=== PATIENT | female | born 1975 | race Caucasian/White ===

== ENCOUNTER 2016-07-15 11:23 | Emergency (ER) | payer MEDICAID, OTHER ==
[~2016-07-15] VITALS: Ht 162.6 cm; Wt 120.2 kg
[~2016-07-15 11:23] MED LIST: AZITHROMYCIN250 MG PO; CIPROFLOXACIN500 M2 ORAL; IBUPROFEN600 MG ORAL; IBUPROFEN600 MG PO; KEFLEX500 MG ORAL; NKM; NO MEDS; NORCO 5-325 TA1 EACH PO; TYLENOL325 MG ORAL
--- NOTE | 2016-07-15 13:16 | Emergency Room Report ---
History of Present Illness General Chief Complaint: Multiple Trauma/Fall Source: Patient Present Illness HPI 40-year-old female presents emergency department complaining of 5/10 in severity left knee pain since this morning. Patient states she took Vicodin prior to arrival as her pain initially was 10 out of 10 in severity. Patient states that she was walking when her left knee buckled from underneath her and she fell to the ground. Patient states she did not hit her head she did not lose consciousness. Patient states she her knee cap dislocated laterally and repositioned itself. Patient denies color changes to the extremity denies numbness or tingling in the affected extremity. Patient reports pain primarily to the medial aspect of the left anterior knee. Patient reports feeling as though her knee is went to give out on her again. Patient reports history of similar episode in the right knee that was years ago. Denies numbness tingling or loss of sensation or gross motor movements of the extremities, incontinence of bowel or bladder. Denies CP, Palpitations, LOC, AMS, dizziness, Changes in Vision, Sensation, paresthesias, or a sudden severe headache. Allergies: Coded Allergies: ASPIRIN (Verified Allergy, Mild, JAUNDICED, 01/18/12) SULFA(SULFONAMIDE ANTIBIOTICS) (Verified Allergy, Mild, Itching, 01/18/12) Patient History Past Medical History: see triage record Past Surgical History: none Pertinent Family History: none Now: No Immunizations: UTD Reviewed Nursing Documentation: PMH: Agreed, PSxH: Agreed Nursing Documentation-PMH Past Medical History: No History, Except For Review of Systems All Other Systems: negative except mentioned in HPI Physical Exam Vital Signs Date Time Temp Pulse Resp B/P Pulse Ox O2 Delivery O2 Flow Rate FiO2 07/15/16 12:02 98.1 78 16 130/80 98 Room Air Sp02 EP Interpretation: reviewed, normal General Appearance: no apparent distress, alert, GCS 15, non-toxic Head: normocephalic, atraumatic Eyes: bilateral eye PERRL, bilateral eye normal inspection ENT: hearing grossly normal, normal pharynx, no angioedema, normal voice Neck: full range of motion, supple/symm/no masses Respiratory: lungs clear, normal breath sounds, speaking full sentences Cardiovascular #1: regular rate, rhythm, no edema, normal capillary refill, other - no evidence of circulatory compromise to the left leg/foot. good capilarry refill, and pedal pulses are equal bilaterally. Musculoskeletal: back normal, gait/station normal, normal range of motion, other - no evidence of circulatory compromise to the left leg/foot. good capilarry refill, and pedal pulses are equal bilaterally. , tender - TTP to the medial left knee, no increased laxity upon varus or valgus stressing, negative anterior and posterior drawer signs. Neurologic: alert, oriented x3, responsive, motor strength/tone normal, sensory intact, speech normal Psychiatric: judgement/insight normal, memory normal, mood/affect normal, no suicidal/homicidal ideation Skin: normal color, no rash, warm/dry, well hydrated Medical Decision Making PA Attestation Dr. Fry is my supervising Physician whom patient management has been discussed with. Diagnostic Impression: Primary Impression: Knee sprain Qualified Codes: S83.92XA - Sprain of unspecified site of left knee, initial encounter ER Course Pt. presents to the ED c/o Left knee pain after knee "gave out on her" Ddx considered but are not limited to Fracture, dislocation, contusion, Sprain/ Strain/Spasm, Vital signs: are WNL, pt. is afebrile H&PE are most consistent with Left knee sprain will r/o fracture., no evidence of circulatory compromise to the knee, no appreciable increased laxity noted. ORDERS: - X-ray Left knee 3 views - negative for fx, Dislocation, or significant soft tissue injury, per preliminary read in ED by Dr. Fry ED INTERVENTIONS: - Knee immobilizer Splint applied to the left knee by pathology tech. Pt. remains neurovascularly intact. -Pt is provided with crutches. Pt. is stable for close outpatient follow up. DISCHARGE: At this time pt. is stable for d/c to home. Will provide printed patient care instructions, and any necessary prescriptions. Care plan and follow up instructions have been discussed with the patient prior to discharge. Last Vital Signs Date Time Temp Pulse Resp B/P Pulse Ox O2 Delivery O2 Flow Rate FiO2 07/15/16 12:02 98.1 78 16 130/80 98 Room Air Disposition: HOME, SELF-CARE Condition: Stable Scripts Acetaminophen* (TYLENOL EXTRA STRENGTH*) 500 Mg Tablet 500 MG ORAL Q6H, #30 TAB 0 Refills Prov: Tiki Day 07/15/16 Referrals: NON PHYSICIAN (PCP) Patient Instructions: Combined Knee Ligament Sprain, Knee Sprain Additional Instructions: Take medications as directed. Follow up with PCP in 3-5 days Return sooner to ED if new symptoms occur, or current symptoms become worse. - Please note that this Emergency Department Report was dictated using [employer] events driver technology software, occasionally this can lead to erroneous entry secondary to interpretation by the dictation equipment. Tiki Day Jul 15, 2016 13:16
[2016-07-15] MEDS ORDERED: TYLENOL EXTRA500 MG ORAL (13:18)
--- NOTE | 2016-07-15 13:25 | Diagnostic Imaging Report ---
Indications: PAIN Technique: Three views of the left knee Comparison: None Findings: No acute fractures. No dislocations. Joint spaces are preserved. No radiopaque foreign body. Normal mineralization. Impression: No acute process
[2016-07-15 13:50] VITALS: BP 125/85
== END 2016-07-15 13:50 | disposition home or self-care (01) ==
LOC: EMR 12:48
DX: S83.92XA Sprain of unspecified site of left knee, initial encounter (principal); W19.XXXA Unspecified fall, initial encounter; Y92.89 Other specified places as the place of occurrence of the external cause; Z88.6 Allergy status to analgesic agent; Z88.2 Allergy status to sulfonamides
CPT/HCPCS: 29530; 99283

== ENCOUNTER 2016-11-07 18:01 | Emergency (ER) | payer MEDICAID ==
[~2016-11-07] VITALS: Ht 162.6 cm; Wt 115.7 kg
[~2016-11-07 18:01] MED LIST changes: +TYLENOL EXTRA500 MG ORAL
[2016-11-07 19:07] LABS: BASOPHILS % (AUTO) 0.8 % (0.0-2.0); EOSINOPHILS % (AUTO) 2.1 % (0.0-3.0); LYMPHOCYTES % (AUTO) 24.6 % (20.0-45.0); MEAN CORPUSCULAR HEMOGLOBIN 29.3 PG (27.0-31.0); MEAN CORPUSCULAR HGB CONC 33.8 G/DL (32.0-36.0); MEAN CORPUSCULAR VOLUME 87 FL (80-99); MEAN PLATELET VOLUME 7.9 FL (6.5-10.1); MONOCYTES % (AUTO) 5.6 % (1.0-10.0); NEUTROPHILS % (AUTO) 66.9 % (45.0-75.0); PLATELET COUNT 284 K/UL (150-450); RED BLOOD COUNT 4.57 M/UL (4.20-5.40); RED CELL DISTRIBUTION WIDTH 12.3 % (11.6-14.8); WHITE BLOOD COUNT 14.3 K/UL (4.8-10.8)
[2016-11-07 19:12] LABS: APPEARANCE,URINE CLEAR; KETONES,URINE NEGATIVE (NEGATIVE); LEUKOCYTE ESTERASE ,URINE NEGATIVE (NEGATIVE); NITRITE,URINE NEGATIVE (NEGATIVE); PH,URINE 7 (4.5-8.0); PROTEIN,URINE NEGATIVE (NEGATIVE); UROBILINOGEN,URINE NORMAL MG/DL (0.0-1.0)
[2016-11-07 19:15] VITALS: BP 109/76
[2016-11-07 19:29] LABS: ALANINE AMINOTRANSFERASE 29 U/L (3-33); ANION GAP 12 (5-15); ASPARTATE AMINO TRANSFERASE 24 U/L (5-40); CALCIUM 9.6 mg/dL (8.6-10.2); CARBON DIOXIDE 27 mEQ/L (20-30); CHLORIDE 99 mEQ/L (98-107); CREATININE 0.8 mg/dL (0.5-0.9); GLOMERULAR FILTRATION RATE > 60 mL/min (>60); HEMOLYSIS 9; LIPASE 31 U/L (< 60); POTASSIUM 3.9 mEQ/L (3.4-4.9); SODIUM 138 mEQ/L (135-145); TOTAL PROTEIN 7.5 g/dL (6.6-8.7)
[2016-11-07] MEDS ORDERED: TYLENOL EXTRA500 MG ORAL (20:28)
[2016-11-07] MEDS ORDERED: Norco 5mg/325mg tab ORAL ONE (20:30)
[2016-11-07 20:55] VITALS: BP 119/70
--- NOTE | 2016-11-07 22:04 | Emergency Room Report ---
History of Present Illness General Chief Complaint: Abdominal Pain Source: Patient Present Illness [facility] The patient is a 40-year-old female presenting for mid abdominal pain. This began today for an unknown reason. Last normal menstrual period was 2 weeks prior. Pain is an 8/10 dull ache to the midabdomen and does not radiate. Worse with touch. She denies other symptoms including nausea, vomiting, fever, chills, constipation, diarrhea, vaginal bleeding, vaginal discharge, dysuria, hematuria, back pain Allergies: Coded Allergies: ASPIRIN (Verified Allergy, Mild, JAUNDICED, 01/18/12) SULFA(SULFONAMIDE ANTIBIOTICS) (Verified Allergy, Mild, Itching, 01/18/12) Patient History Past Medical History: see triage record Pertinent Family History: none Reviewed Nursing Documentation: PMH: Agreed, PSxH: Agreed Review of Systems All Other Systems: negative except mentioned in HPI Physical Exam Vital Signs Date Time Temp Pulse Resp B/P Pulse Ox O2 Delivery O2 Flow Rate FiO2 11/07/16 18:08 98.1 103 20 109/76 98 Room Air Sp02 EP Interpretation: reviewed, normal General Appearance: no apparent distress, alert, GCS 15, non-toxic Head: normocephalic, atraumatic Eyes: bilateral eye PERRL, bilateral eye normal inspection ENT: hearing grossly normal, normal pharynx, no angioedema, normal voice Neck: full range of motion, supple/symm/no masses Cardiovascular #1: regular rate, rhythm, no edema Gastrointestinal: normal bowel sounds, soft, no mass, no guarding, no rebound, tenderness - periumbilical , overweight Rectal: deferred Genitourinary: normal inspection, no CVA tenderness Musculoskeletal: back normal, gait/station normal, normal range of motion, non- tender Neurologic: alert, oriented x3, responsive, motor strength/tone normal, sensory intact, speech normal Psychiatric: judgement/insight normal, memory normal, mood/affect normal, no suicidal/homicidal ideation Reflexes: 3+ bicep (R), 3+ bicep (L), 3+ tricep (R), 3+ tricep (L), 3+ knee (R) , 3+ knee (L) Skin: normal color, no rash, warm/dry, well hydrated Medical Decision Making PA Attestation Dr. Maynard is my supervising physician. Patient management was discussed with my supervising physician Diagnostic Impression: Primary Impression: Ovarian cyst Qualified Codes: N83.209 - Unspecified ovarian cyst, unspecified side Additional Impression: Umbilical hernia Qualified Codes: K42.9 - Umbilical hernia without obstruction or gangrene ER Course The patient is a 40-year-old female presenting for mid abdominal pain. Differential diagnoses considered include but not limited to gastritis, pancreatitis, appendicitis, , UTI, among others PE: afebrile. NAD Abdomen is soft. There is tenderness periumbilical tenderness to palpation. Normal bowel sounds. No masses. Nondistended. No CVA tenderness Blood work shows leukocytosis. Otherwise unremarkable. CT scan of abdomen/pelvis shows nonincarcerated umbilical hernia and ovarian cysts. Otherwise unremarkable The patient is given IV fluids and pain medication and feels better. She will be discharged home. She was informed of results. ER precautions are given Laboratory Tests Test 11/07/16 18:10 11/07/16 18:40 Urine Color Pale yellow Urine Appearance Clear Urine pH 7 (4.5-8.0) Urine Specific [place] 1.010 (1.005-1.035) Urine Protein Negative (NEGATIVE) Urine Glucose (UA) Negative (NEGATIVE) Urine Ketones Negative (NEGATIVE) Urine Occult Blood Negative (NEGATIVE) Urine Nitrite Negative (NEGATIVE) Urine Bilirubin Negative (NEGATIVE) Urine Urobilinogen Normal MG/DL (0.0-1.0) Urine Leukocyte Esterase Negative (NEGATIVE) Urine HCG, Qualitative Negative White Blood Count 14.3 K/UL (4.8-10.8) H Red Blood Count 4.57 M/UL (4.20-5.40) Hemoglobin 13.4 G/DL (12.0-16.0) Hematocrit 39.6 % (37.0-47.0) Mean Corpuscular Volume 87 FL (80-99) Mean Corpuscular Hemoglobin 29.3 PG (27.0-31.0) Mean Corpuscular Hemoglobin Concent 33.8 G/DL (32.0-36.0) Red Cell Distribution Width 12.3 % (11.6-14.8) Platelet Count 284 K/UL (150-450) Mean Platelet Volume 7.9 FL (6.5-10.1) Neutrophils (%) (Auto) 66.9 % (45.0-75.0) Lymphocytes (%) (Auto) 24.6 % (20.0-45.0) Monocytes (%) (Auto) 5.6 % (1.0-10.0) Eosinophils (%) (Auto) 2.1 % (0.0-3.0) Basophils (%) (Auto) 0.8 % (0.0-2.0) Sodium Level 138 mEQ/L (135-145) Potassium Level 3.9 mEQ/L (3.4-4.9) Chloride Level 99 mEQ/L (98-107) Carbon Dioxide Level 27 mEQ/L (20-30) Anion Gap 12 (5-15) Blood Urea Nitrogen 10 mg/dL (7-23) Creatinine 0.8 mg/dL (0.5-0.9) Estimate Glomerular Filtration Rate > 60 mL/min (>60) Glucose Level 92 mg/dL (74-106) Calcium Level 9.6 mg/dL (8.6-10.2) Total Bilirubin 0.4 mg/dL (0.0-1.2) Aspartate Amino Transferase (AST) 24 U/L (5-40) Alanine Aminotransferase (ALT) 29 U/L (3-33) Alkaline Phosphatase 95 U/L (35-104) Total Protein 7.5 g/dL (6.6-8.7) Albumin 5.0 g/dL (3.5-5.2) Globulin 2.5 g/dL Albumin/Globulin Ratio 2.0 (1.0-2.7) Lipase 31 U/L (< 60) Lab Results Impression CBC shows leukocytosis. Otherwise unremarkable CT/MRI/US Diagnostic Results CT/MRI/US Diagnostic Results : Imaging Test Ordered: CT abd/pelvis Impression umbilical hernia, no incarceration. Ovarian cyst. Last Vital Signs Date Time Temp Pulse Resp B/P Pulse Ox O2 Delivery O2 Flow Rate FiO2 11/07/16 20:55 98.1 95 18 119/70 99 Room Air Status: improved Disposition: HOME, SELF-CARE Condition: Improved Scripts Acetaminophen* (TYLENOL EXTRA STRENGTH*) 500 Mg Tablet 500 MG ORAL Q8H Y for Prn Headache/Temp > 101, #30 TAB 0 Refills Prov: FRANCES SANDHU 11/07/16 Patient Instructions: Umbilical Hernia, Pediatric, Abdominal Pain, Adult Additional Instructions: I discussed my findings with the patient. All questions and concerns have been answered. Treatment and medication compliance have been addressed. I advised the patient that they need to follow up with PMD in 3-5 days. Return to ED if symptoms worsen, new symptoms arise, or if needed for any reason. Patient verbalized understanding of discharge instructions. FRANCES SANDHU Nov 07, 2016 22:04
--- NOTE | 2016-11-08 10:37 | Diagnostic Imaging Report ---
Clinical Indication: Abdominal pain Technique: No oral contrast utilized, per emergency room physician request IV administration nonionic contrast. Venous phase spiral acquisition obtained through the abdomen and pelvis. Multiplanar reconstructions were generated. Total dose length product and 74 mGycm. CTDIvol(s) 19 mGy. Dose reduction achieved using automated exposure control Comparison: None Findings: Normal appendix. No evidence of diverticulosis or diverticulitis. No small bowel distention. No free or loculated intraperitoneal air or fluid is evident. Distal esophagus, stomach, duodenum are unremarkable. There is a small fat-containing about The liver, gallbladder, bile ducts, pancreas, spleen, are unremarkable. There is a small parapelvic cyst in the right renal sinus. The kidneys are otherwise unremarkable. The ureters and bladder are unremarkable. No pelvic mass or adenopathy. No retroperitoneal or mesenteric mass or adenopathy. Prominent right ovary, measures 4 cm in length, probably contains a 2 cm dominant follicle. The included lung bases are clear. The bones demonstrate very mild degenerative changes. Impression: Essentially unremarkable exam. Incidental findings as noted This agrees with the preliminary interpretation provided overnight by Dr. Peterson The CT scanner at [facility] is accredited by the [employer] and the scans are performed using protocols designed to limit radiation exposure to as low as reasonably achievable to attain images of sufficient resolution adequate for diagnostic evaluation.
== END 2016-11-07 20:55 | disposition home or self-care (01) ==
LOC: EMR 18:40
DX: N83.209 Unspecified ovarian cyst, unspecified side (principal); K42.9 Umbilical hernia without obstruction or gangrene; Z88.2 Allergy status to sulfonamides; Z88.6 Allergy status to analgesic agent
CPT/HCPCS: 36415; 74177; 80053; 81003; 81025; 83690; 85025; 96360; 99284; Q9967; 96374

== ENCOUNTER 2019-01-28 21:51 | Emergency (ER) | payer MEDICAID ==
[~2019-01-28] VITALS: Ht 162.6 cm; Wt 117.9 kg
[2019-01-28 22:00] VITALS: BP 122/81
--- NOTE | 2019-01-28 22:00 | NUR ---
ED Nurse Note: Patient walked into ED c/o rectal bleeding that started friday01/24/19, states that the bleeding worsens when patient is trying to make a void, describes the discahrge from her rectum has both clotty blood as well as bright red blood, denies any pain at this time. patient placed on a monitoring tech, IV started on left forearm 20 gauge, urine output was yellow with no signs of blood. will wait for further orders
[2019-01-28] MEDS ORDERED: FERROUS SULFAT325 MG ORAL (22:02)
--- NOTE | 2019-01-28 22:12 | NUR ---
ED Nurse Note: witnessed ERMD perform Rectal exam on PT.
--- NOTE | 2019-01-28 22:21 | Emergency Room Report ---
History of Present Illness General Chief Complaint: Female Urogenital Problems Source: Patient Present Illness HPI 43-year-old female, presents with blood mixed in with stool since 3 days ago, no aggravating relieving factors severity is mild, no pain no abdominal pain no fevers no chills, no one else is sick, her father had colon cancer at age 63, she recently had a colonoscopy that was negative one year ago. Patient denies any chest pain shortness of breath patient presents for evaluation She has a pmhx of G6PD, Anemia currently taking Iron Allergies: Coded Allergies: ASPIRIN (Verified Allergy, Mild, JAUNDICED, 01/18/12) SULFA(SULFONAMIDE ANTIBIOTICS) (Verified Allergy, Mild, Itching, 01/18/12) Patient History Past Medical History: see triage record Last Menstrual Period: 01/21/19 Reviewed Nursing Documentation: PMH: Agreed; PSxH: Agreed Review of Systems All Other Systems: negative except mentioned in HPI Physical Exam Vital Signs Date Time Temp Pulse Resp B/P (MAP) Pulse Ox O2 Delivery O2 Flow Rate FiO2 01/28/19 21:54 98.2 100 18 122/81 (95) 96 Room Air Sp02 EP Interpretation: reviewed, normal General Appearance: well appearing, no apparent distress, alert Head: normocephalic, atraumatic Eyes: bilateral eye PERRL, bilateral eye EOMI ENT: uvula midline, moist mucus membranes Neck: supple, thyroid normal, supple/symm/no masses Respiratory: lungs clear, no respiratory distress, no retraction, no accessory muscle use Cardiovascular #1: normal peripheral pulses, regular rate, rhythm, no edema, no gallop, no murmur Gastrointestinal: non tender, soft, no guarding, no rebound Rectal: hemorrhoids, other - Continuous Improvement Engineer Flores Chopra RN no maria l blood, no melena Musculoskeletal: normal inspection Neurologic: alert, oriented x3 Psychiatric: mood/affect normal Skin: no rash, warm/dry Medical Decision Making Diagnostic Impression: Primary Impression: Rectal bleeding ER Course 43-year-old female presents with painless rectal bleeding mixed in with her stool, differential diagnosis includes acute GI bleed, hemorrhoids, cancer, patient with recent endoscopy/colonoscopy with negative work-up last year, labs show no evidence of anemia, no maria l blood on exam, disposition home with return precautions follow-up with GI Laboratory Tests Test 01/28/19 22:05 White Blood Count 12.5 K/UL (4.8-10.8) H Red Blood Count 4.79 M/UL (4.20-5.40) Hemoglobin 12.4 G/DL (12.0-16.0) Hematocrit 37.3 % (37.0-47.0) Mean Corpuscular Volume 78 FL (80-99) L Mean Corpuscular Hemoglobin 25.8 PG (27.0-31.0) L Mean Corpuscular Hemoglobin Concent 33.2 G/DL (32.0-36.0) Red Cell Distribution Width 12.4 % (11.6-14.8) Platelet Count 338 K/UL (150-450) Mean Platelet Volume 6.2 FL (6.5-10.1) L Neutrophils (%) (Auto) 52.8 % (45.0-75.0) Lymphocytes (%) (Auto) 37.6 % (20.0-45.0) Monocytes (%) (Auto) 5.4 % (1.0-10.0) Eosinophils (%) (Auto) 3.1 % (0.0-3.0) H Basophils (%) (Auto) 1.1 % (0.0-2.0) Prothrombin Time 9.7 SEC (9.30-11.50) Prothrombin Time INR 0.9 (0.9-1.1) PTT 29 SEC (23-33) Urine HCG, Qualitative Negative (NEGATIVE) Sodium Level 140 MMOL/L (136-145) Potassium Level 3.6 MMOL/L (3.5-5.1) Chloride Level 104 MMOL/L (98-107) Carbon Dioxide Level 27 MMOL/L (21-32) Anion Gap 9 mmol/L (5-15) Blood Urea Nitrogen 19 mg/dL (7-18) H Creatinine 0.8 MG/DL (0.55-1.30) Estimate Glomerular Filtration Rate > 60 mL/min (>60) Glucose Level 111 MG/DL (74-106) H Calcium Level 9.4 MG/DL (8.5-10.1) Total Bilirubin 0.4 MG/DL (0.2-1.0) Aspartate Amino Transferase (AST) 17 U/L (15-37) Alanine Aminotransferase (ALT) 39 U/L (12-78) Alkaline Phosphatase 108 U/L (46-116) Total Protein 7.8 G/DL (6.4-8.2) Albumin 3.6 G/DL (3.4-5.0) Globulin 4.2 g/dL Albumin/Globulin Ratio 0.9 (1.0-2.7) L Last Vital Signs Date Time Temp Pulse Resp B/P (MAP) Pulse Ox O2 Delivery O2 Flow Rate FiO2 01/28/19 21:54 98.2 100 18 122/81 (95) 96 Room Air Disposition: HOME, SELF-CARE Condition: Stable Referrals: Andres Hernandez MD Patient Instructions: Diverticulosis, Hemorrhoids, [id number], How to Take a Sitz Bath Additional Instructions: The patient was provided with discharge instructions, notified to follow-up with a primary care doctor and or specialist in the next 24-48 hours, and to return to the ED if they have worsening of their symptoms. Please note that this report is being documented using [employer] technology. This can lead to erroneous entry secondary to incorrect interpretation by the dictating instrument. FOLLOW-UP WITH YOUR OFFICE MACHINES TEACHER Clyde Mcwilliams MD Jan 28, 2019 22:21
[2019-01-28 22:34] LABS: BASOPHILS % (AUTO) 1.1 % (0.0-2.0); EOSINOPHILS % (AUTO) 3.1 % (0.0-3.0); HEMATOCRIT 37.3 % (37.0-47.0); HEMOGLOBIN 12.4 G/DL (12.0-16.0); LYMPHOCYTES % (AUTO) 37.6 % (20.0-45.0); MEAN CORPUSCULAR VOLUME 78 FL (80-99); MONOCYTES % (AUTO) 5.4 % (1.0-10.0); NEUTROPHILS % (AUTO) 52.8 % (45.0-75.0); PLATELET COUNT 338 K/UL (150-450); RED BLOOD COUNT 4.79 M/UL (4.20-5.40); RED CELL DISTRIBUTION WIDTH 12.4 % (11.6-14.8); WHITE BLOOD COUNT 12.5 K/UL (4.8-10.8)
[2019-01-28 22:43] LABS: INR 0.9 (0.9-1.1)
[2019-01-28 22:52] LABS: ANION GAP 9 mmol/L (5-15); BLOOD UREA NITROGEN 19 mg/dL (7-18); CALCIUM 9.4 MG/DL (8.5-10.1); CARBON DIOXIDE 27 MMOL/L (21-32); CHLORIDE 104 MMOL/L (98-107); CREATININE 0.8 MG/DL (0.55-1.30); POTASSIUM 3.6 MMOL/L (3.5-5.1); SODIUM 140 MMOL/L (136-145)
[2019-01-28 22:56] LABS: ALANINE AMINOTRANSFERASE 39 U/L (12-78); ALBUMIN 3.6 G/DL (3.4-5.0); ALBUMIN/GLOBULIN RATIO 0.9 (1.0-2.7); ALKALINE PHOSPHATASE 108 U/L (46-116); ASPARTATE AMINO TRANSFERASE 17 U/L (15-37); BILIRUBIN,TOTAL 0.4 MG/DL (0.2-1.0)
[2019-01-28 23:11] VITALS: BP 125/79
--- NOTE | 2019-01-28 23:11 | NUR ---
ER DISCHARGE NOTE: Patient is cleared to be discharged per ERMD, pt is aox4, on room air, with stable vital signs. pt was given dc instructions, pt was able to verbalize understanding, pt id band and iv site removed without complications. pt is able to ambulate with steady gait. pt took all belongings.
== END 2019-01-28 23:11 | disposition home or self-care (01) ==
LOC: EMR 22:20
DX: K62.5 Hemorrhage of anus and rectum (principal); D64.9 Anemia, unspecified; Z88.6 Allergy status to analgesic agent; Z88.2 Allergy status to sulfonamides
CPT/HCPCS: 36415; 80053; 81025; 85025; 85610; 85730; 96360; Z7502; 99284

== ENCOUNTER 2019-02-19 23:21 | Emergency (ER) | payer MEDICAID ==
[~2019-02-19] VITALS: Ht 162.6 cm; Wt 122.5 kg
[~2019-02-19 23:21] MED LIST changes: +FERROUS SULFAT325 MG ORAL
[2019-02-19 23:41] VITALS: BP 135/79
[2019-02-19] MEDS ORDERED: Ketorolac 60mg Inj IM ONE (23:45)
--- NOTE | 2019-02-19 23:54 | Emergency Room Report ---
History of Present Illness General Chief Complaint: Pain Source: Patient Present Illness HPI 43-year-old female who is presenting with new onset, moderate bilateral upper arm pain, and hand pain. Patient symptoms started 2 days ago, she took Aleve 1 tablet at 7 PM with no improvement of pain. Patient denies any trauma. She denies any injuries. She has no prior similar symptoms. She has no cardiac history or medical conditions. She notes her pain radiates to her bilateral pectoralis. She has pain when she squeezes her arms and at rest. 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 She does not note any stressful body positions and underscore and seating arrangement. Allergies: Coded Allergies: ASPIRIN (Verified Allergy, Mild, JAUNDICED, 01/18/12) SULFA(SULFONAMIDE ANTIBIOTICS) (Verified Allergy, Mild, Itching, 01/18/12) Patient History Past Medical History: none Past Surgical History: none Last Menstrual Period: 01/19/19 Nursing Documentation-[facility] Past Medical History: No History, Except For Review of Systems Constitutional: Denies: chills, fever Respiratory: Denies: cough, shortness of breath Cardiovascular: Denies: chest pain, palpitations Gastrointestinal: Denies: diarrhea, vomiting Genitourinary: Denies: hematuria, pain Musculoskeletal: Reports: muscle pain; Denies: joint swelling Skin: Denies: rash, lesions Neurological: Denies: headache, dizziness Physical Exam Vital Signs Date Time Temp Pulse Resp B/P (MAP) Pulse Ox O2 Delivery O2 Flow Rate FiO2 02/19/19 23:30 98.8 94 18 135/79 (97) 94 Room Air Sp02 EP Interpretation: reviewed General Appearance: well appearing, no apparent distress, non-toxic Head: normocephalic, atraumatic Eyes: bilateral eye normal inspection ENT: hearing grossly normal, EOM grossly intact, moist mucus membranes Neck: supple Respiratory: normal inspection, lungs clear, normal breath sounds, no rhonchi, no respiratory distress, no retraction, no accessory muscle use, no wheezing, speaking full sentences, other - chest wall tenderness over bilateral palpation , chest symmetrical Cardiovascular #1: normal inspection, regular rate, rhythm, no edema, no gallop , no JVD, no murmur, normal capillary refill Cardiovascular #2: 2+ radial (R), 2+ radial (L) Gastrointestinal: soft, non-distended Rectal: deferred Musculoskeletal: moves extm spontaneously, no lower extremity edema, other - Palpation of hands and upper extremity elicit mild pain, palpation of bilateral pectoralis elicits moderate pain., Full range of motion and 5 out of 5 strength of bilateral upper extremities at shoulder, elbow, wrist, fingers. Neurologic: motor strength/tone normal, oriented, distal neuro normal, oriented x3, sensory intact, grossly normal Psychiatric: mood/affect normal Skin: warm/dry, normal turgor Medical Decision Making Diagnostic Impression: Primary Impression: Musculoskeletal pain ER Course 43-year-old female complaining of bilateral upper arm pain and distal arm pain found to have tenderness on palpation, and increased tenderness to palpation of pectoralis no signs of trauma or injury. Patient tried Aleve with no improvement. \Differential includes but is not limited to, musculoskeletal pain, musculoskeletal strain, chest mass, thoracic mass, spinal stenosis, spinal abscess, meningitis. Less likely to be spinal stenosis, abscess, meningitis as patient has no focal neurological deficits or upper or lower extremity weakness or sensory deficits, and patient is afebrile with no concern of IV drug abuse Will perform chest x-ray to look for chest mass, thoracic mass. And will give Toradol for pain control. Chest X-Ray Diagnostic Results Chest X-Ray Diagnostic Results : Chest X-Ray Ordered: Yes # of Views/Limited/Complete: 2 View Indication: Chest Pain EP Interpretation: Yes Interpretation: no consolidation, no effusion, no pneumothorax, no acute cardiopulmonary disease Impression: No acute disease Electronically Signed by: Nancy Last Vital Signs Date Time Temp Pulse Resp B/P (MAP) Pulse Ox O2 Delivery O2 Flow Rate FiO2 02/19/19 23:41 98.8 82 18 135/79 94 Room Air Reevaluation Impression X-rays noted to be within normal limits. Patient to follow-up with primary care doctor. Patient understands warning signs and when to return. Disposition: HOME, SELF-CARE Condition: Stable Scripts Ibuprofen* (MOTRIN*) 600 Mg Tablet 600 MG ORAL Q6H PRN for For Pain, #30 TAB 0 Refills Prov: Hector Cruz M.D. 02/20/19 Referrals: [facility] Patient Instructions: Musculoskeletal Pain Hector Cruz M.D. Feb 19, 2019 23:54
--- NOTE | 2019-02-20 00:40 | Diagnostic Imaging Report ---
EXAM: XR Chest, 2 Views CLINICAL HISTORY: CP TECHNIQUE: Frontal and lateral views of the chest. COMPARISON: 08/25/12 FINDINGS: Lungs: No consolidation or mass. Pleural space: No effusion. Heart: Unchanged cardiomegaly. Bones/joints: No acute findings. IMPRESSION: No acute cardiopulmonary process.
[2019-02-20] MEDS ORDERED: IBUPROFEN600 MG ORAL (00:54)
[2019-02-20 01:12] VITALS: BP 135/79
== END 2019-02-20 01:15 | disposition home or self-care (01) ==
LOC: EMR 23:49
DX: M79.602 Pain in left arm (principal); M79.601 Pain in right arm; M25.542 Pain in joints of left hand; M25.541 Pain in joints of right hand; Z88.6 Allergy status to analgesic agent; Z88.2 Allergy status to sulfonamides
CPT/HCPCS: 71045; 96372; Z7502; 99283

== ENCOUNTER 2019-04-29 18:53 | Emergency (ER) | payer MEDICAID ==
[~2019-04-29] VITALS: Ht 162.6 cm; Wt 120.7 kg
[2019-04-29 19:25] VITALS: BP 131/88
--- NOTE | 2019-04-29 20:06 | Emergency Room Report ---
History of Present Illness General Chief Complaint: Pain Source: Patient Present Illness HPI 43-year-old female with no symptom past medical history here complaining of 1 week of left lower rib pain. Denies any fall or injury. Denies shortness of breath and generalized chest pain. Denies of any heavy objects. Patient appears to be obese and pain is underneath her breast over her 11-12 ribs on the left side. Knee pain 5 out of 10 without radiation. Has been taking Motrin minimal relief. Sitting comfortably with stable vital signs. Denies other associated symptoms. Denies at this time. Allergies: Coded Allergies: ASPIRIN (Verified Allergy, Mild, JAUNDICED, 01/18/12) SULFA(SULFONAMIDE ANTIBIOTICS) (Verified Allergy, Mild, Itching, 01/18/12) Patient History Past Medical History: see triage record Past Surgical History: none Pertinent Family History: none Last Menstrual Period: 04/12/19 Now: No Immunizations: UTD Reviewed Nursing Documentation: PMH: Agreed; PSxH: Agreed Nursing Documentation-PMH Past Medical History: No History, Except For Review of Systems All Other Systems: negative except mentioned in HPI Physical Exam Vital Signs Date Time Temp Pulse Resp B/P (MAP) Pulse Ox O2 Delivery O2 Flow Rate FiO2 04/29/19 19:04 98.1 103 18 131/88 (102) 98 Room Air Sp02 EP Interpretation: reviewed, normal General Appearance: no apparent distress, alert, GCS 15, non-toxic Head: normocephalic, atraumatic Eyes: bilateral eye normal inspection, bilateral eye PERRL ENT: hearing grossly normal, normal pharynx, no angioedema, normal voice Neck: full range of motion, supple/symm/no masses Respiratory: chest non-tender, lungs clear, normal breath sounds, no rhonchi, no respiratory distress, no retraction, no accessory muscle use, no wheezing, speaking full sentences Cardiovascular #1: regular rate, rhythm, no edema, no murmur Gastrointestinal: normal bowel sounds, non tender, soft, non-distended, no guarding, no rebound Rectal: deferred Musculoskeletal: back normal, digits/nails normal, non-tender Neurologic: alert, motor strength/tone normal, oriented x3, sensory intact, responsive, speech normal Psychiatric: judgement/insight normal, memory normal, mood/affect normal, no suicidal/homicidal ideation Skin: no rash Lymphatic: no adenopathy Medical Decision Making PA Attestation All my diagnosis and treatment plans were reviewed ad discussed with my supervising physician Dr. Jacobs Diagnostic Impression: Primary Impression: Costochondritis ER Course 43-year-old female with no symptom past medical history here complaining of 1 week of left lower rib pain. Denies any fall or injury. Denies shortness of breath and generalized chest pain. Denies of any heavy objects. Patient appears to be obese and pain is underneath her breast over her 11-12 ribs on the left side. Knee pain 5 out of 10 without radiation. Has been taking Motrin minimal relief. Sitting comfortably with stable vital signs. Denies other associated symptoms. Denies at this time. Ddx considered but are not limited to: Pneumothorax, rib fracture, rib contusion , costochondritis Vital signs: are WNL, pt. is afebrile H&PE are most consistent with costochondritis ORDERS: Chest x-ray, left-sided rib x-ray, Tylenol, lidocaine patch ED INTERVENTIONS: Tylenol DISCHARGE: At this time pt. is stable for d/c to home. Will provide printed patient care instructions, and any necessary prescriptions. Care plan and follow up instructions have been discussed with the patient prior to discharge. Patient to follow primary care provider, weight loss highly advised, take medication as directed, if worsening symptoms return to the emergency room Chest X-Ray Diagnostic Results Chest X-Ray Diagnostic Results : Chest X-Ray Ordered: Yes # of Views/Limited/Complete: 1 View Indication: Other EP Interpretation: Yes PA Xray: Interpretation reviewed, by supervising MD, and agrees with findings. Interpretation: no consolidation, no effusion, no pneumothorax Impression: No acute disease Electronically Signed by: David Martell PA-C Other X-Ray Diagnostic Results Other X-Ray Diagnostic Results : X-Ray ordered: Left-sided ribs # of Views/Limited Vs Complete: 2 View Indication: Pain EP Interpretation: Yes PA Xray: Interpretation reviewed, by supervising MD, and agrees with findings. Interpretation: no dislocation, no soft tissue swelling, no fractures Impression: No acute disease Electronically Signed by: David Martell PA-C Last Vital Signs Date Time Temp Pulse Resp B/P (MAP) Pulse Ox O2 Delivery O2 Flow Rate FiO2 04/29/19 19:25 98.1 78 18 131/88 98 Room Air Status: improved Disposition: HOME, SELF-CARE Condition: Stable Scripts Lidocaine Patch* (Lidoderm Patch*) 1 Each Adh..patch 1 PATCH TOPIC DAILY, #7 PATCH 0 Refills Patch(es) may remain in place for up to 12 hours in any 24-hour period. Prov: David Sultana 04/29/19 Acetaminophen* (TYLENOL EXTRA STRENGTH*) 500 Mg Tablet 500 MG ORAL Q6H PRN for Mild Pain/Temp > 100.5, #30 TAB 0 Refills Prov: David Sultana 04/29/19 Referrals: NON PHYSICIAN (PCP) Patient Instructions: Costochondritis, [id number] Additional Instructions: Take medication as directed, follow with primary care provider, avoid strenuous physical activity, physical therapy may help, if worsening symptoms return to the emergency room David Sultana Apr 29, 2019 20:06
[2019-04-29] MEDS ORDERED: TYLENOL EXTRA500 MG ORAL (20:07)
[2019-04-29] MEDS ORDERED: LIDODERM700 M1 TOPIC (20:07)
[2019-04-29 20:13] VITALS: BP 131/88
--- NOTE | 2019-04-30 12:16 | Diagnostic Imaging Report ---
Indication: Chest pain Comparison: 02/19/2019 A single view chest radiograph was obtained. Findings: Cardiomediastinal appearance is within normal limits for age. The lungs are clear but low in volume. Pulmonary vascularity is appropriate. The diaphragmatic contour is smooth and costophrenic angles are sharp. No pleural effusions are identified. The bones are unremarkable. Impression: Suboptimal exam. No acute findings
--- NOTE | 2019-04-30 13:47 | Diagnostic Imaging Report ---
Indication: Left chest pain. Trauma. Comparison: None Findings: 4 views of the left chest wall was obtained for evaluation of the ribs. There is no acute fracture identified. There is no soft tissue swelling demonstrated. The lung is essentially clear. There is no pneumothorax. The costophrenic angle is sharp. Other osseous structures visualized are unremarkable. Impression: Negative left unilateral rib series
== END 2019-04-29 20:13 | disposition home or self-care (01) ==
LOC: EMR 19:20
DX: M94.0 Chondrocostal junction syndrome [Tietze] (principal); Z88.6 Allergy status to analgesic agent; Z88.2 Allergy status to sulfonamides
CPT/HCPCS: 71045; 71100; Z7502; 99284